=== PATIENT | female | born 1985 | race Hispanic/Latino ===

== ENCOUNTER 2018-07-01 00:54 | Observation (INO) | payer OTHER ==
[~2018-07-01] VITALS: Ht 165.1 cm; Wt 66.7 kg
[~2018-07-01 00:54] MED LIST: ORTHO TRI-CYCL1 EACH
--- OUTSIDE RECORDS SUMMARY | 2018-07-01 00:57 | XMS REPORT | Continuity of Care Document ---
Author Author [facility] Address Unknown Phone Unavailable Problems Problem Status Onset Date Classification Date Reported Comments Source Cough 12/03/2017 Diagnosis 12/03/2017 [facility] On examination - fluid -middle ear 12/03/2017 Diagnosis 12/03/2017 [facility] Acute maxillary sinusitis 12/03/2017 Diagnosis 12/03/2017 [facility] Medications Medication Details Route Status Patient Instructions Ordering Provider Order Date Source Amoxicillin 875 MG / Clavulanate 125 MG Oral Tablet [Augmentin] Augmentin 875 mg-125 mg tablet Take 1 tablet every 12 hours by oral route with meals for 10 days. Active [facility] Brompheniramine Maleate 0.4 MG/ML / Dextromethorphan Hydrobromide 2 MG/ML / Pseudoephedrine Hydrochloride 6 MG/ML Oral Solution [Bromfed DM] Bromfed DM 2 mg-30 mg-10 mg/5 mL syrup Take 10 mL every 4 hours by oral route as needed for 7 days. Active [facility] norgestimate-ethinyl estradiol 0.18 mg/0.215mg/0.25mg-35 mcg(28)tablet norgestimate-ethinyl estradiol 0.18 mg/0.215mg/0.25mg-35 mcg(28)tablet Active [facility] Allergies, Adverse Reactions, Alerts Substance Category Reaction Severity Reaction type Status Date Reported Comments Source Immunizations Immunization Date Given Site Status Last Updated Comments Source Results Order Name Results Value Reference Range Date Interpretation Comments Source Vital Signs Vital Sign Value Date Comments Source Diastolic (mm Hg) 68 12/03/2017 [facility] Height 65 12/03/2017 [facility] Systolic (mm Hg) 108 12/03/2017 [facility] Weight 142 12/03/2017 [facility] Encounters Location Location Details Encounter Type Encounter Number Reason For Visit Attending Provider ADM Date DC Date Status Source [place] - [facility] - [id number] Carrillo PA-C: [address] [place] [address], Ph. [id number] Kathy Carrillo 12/03/2017 [facility] Procedures Procedure Code Date Perfomer Comments Source 10/08/2007 [facility]
--- OUTSIDE RECORDS SUMMARY | 2018-07-01 00:57 | XMS REPORT | Encounter Summary ---
Author Organization Unknown Address [address] [place] [address] Phone [phone] Reason for Visit Medical Complaint Instructions 1. Acute maxillary sinusitis sinusitis: care instructions Augmentin 875 mg-125 mg tablet 2. On examination - fluid -middle ear 3. Cough cough: care instructions Bromfed DM 2 mg-30 mg-10 mg/5 mL syrup Discussion Note Take an hnfl-ukz-pyeaenh pain medicine, such as acetaminophen (Tylenol), ibuprofen (Advil, Motrin), or naproxen (Aleve). Read and follow all instructions on the label. If the doctor prescribed antibiotics, take them as directed. Do not stop taking them just because you feel better. You need to take the full course of antibiotics. Be careful when taking yqoq-knr-vodmkwe cold or flu medicines and Tylenol at the same time. Plan of Care Reminders Provider Appointments None recorded. Lab None recorded. Referral None recorded. Procedures None recorded. Surgeries None recorded. Imaging None recorded. Medications Name Start Date Augmentin 875 mg-125 mg tablet Take 1 tablet every 12 hours by oral route with meals for 10 days. Bromfed DM 2 mg-30 mg-10 mg/5 mL syrup Take 10 mL every 4 hours by oral route as needed for 7 days. norgestimate-ethinyl estradiol 0.18 mg/0.215mg/0.25mg-35 mcg(28)tablet Medications Administered None recorded. Vitals Height Weight BMI Blood Pressure 5 ft 5 in 142 lbs 23.6 kg/m2 108/68 mm[Hg] Lab Results None recorded. Allergies None recorded. Problems No Known Problems Procedures Date Name Performed by 10/08/2007 Information not available Vaccine List None recorded. Social History Smoking Status Never Smoker Past Encounters 12/03/2017 Acute Maxillary Sinusitis; On Examination - Fluid -Middle Ear; Cough Kathy Carrillo PA-C: [address] [facility], [place] [address], Ph. History of Present Illness Cough Reported By: Patient HPI: Location: chest, nasal/sinus. Quality: productive cough, sore throat, colored phlegm, congested. Duration: 7 days. Severity: mild. Onset/Timing: sudden. Context: no foreign travel, non-smoker, sick contact. Modifying factors: OTC medication. Associated Symptoms: no shortness of breath, no wheezing, no sweats, no significant weight gain, no significant weight loss, no morning cough, no vomiting, no diarrhea, no rash, no nausea, no fever/chills, no headache, green sputum, sore throat, muscle aches Review of Systems Basic Reported By: Patient Constitutional: Constitutional: no fever Eyes: Eyes: no eye complaints Jwjk-Cfya-Clzcu-Throat: Ears: ; bilateral ear pressure. Nose: nose/sinus problems. Mouth/Throat: no bleeding gums, no mouth complaints, no teeth problems, sore throat Cardiovascular: Cardiovascular: no chest pain, no shortness of breath, no known heart murmur Respiratory: Respiratory: no wheezing, no shortness of breath, cough Gastrointestinal: Gastrointestinal: no abdominal pain, no vomiting / diarrhea Genitourinary: Genitourinary: no urinary complaints, no discharge Musculoskeletal: Musculoskeletal: no muscle aches, no muscle weakness, no arthralgias/joint pain, no back pain Skin: Skin: no abnormal / changing mole, no jaundice, no rashes Neurologic: Neurologic: no loss of consciousness, no weakness, no numbness, no seizures, no dizziness, no headaches, headache Physical Exam Adult Basic Reported By: Patient Constitutional: General Appearance: healthy-appearing, well-nourished, well-developed. Level of Distress: NAD. Ambulation: ambulating normally Psychiatric: Mental Status: active and alert. Orientation: to time, to place, to person Eyes: Lids and Conjunctivae: non-injected, no discharge, no pallor. Pupils: PERRLA. EOM: EOMI. Sclerae: non-icteric. Vision: acuity grossly intact Sdf-Yqmc-Cbazl-Throat: Ears: no lesions on external ear, no outer ear tenderness, EACs clear, TMs clear, middle ear fluid. Hearing: no hearing loss. Nose: no lesions on external nose, nares patent, no septal deviation, nasal passages clear, sinus tenderness, post nasal drip. Lips, Teeth, and Gums: no mouth or lip ulcers, no bleeding gums, normal dentition. Oropharynx: moist mucous membranes, no erythema, no exudates, tonsils not enlarged Neck: Neck: supple, trachea midline, no masses, FROM. Lymph Nodes: no cervical LAD, no supraclavicular LAD, no axillary LAD, no inguinal LAD Lungs: Respiratory effort: no dyspnea, no tachypnea, no use of accessory muscles, no intercostal retractions. Auscultation: breath sounds normal Cardiovascular: Heart Auscultation: RRR, no murmurs
[2018-07-01] MEDS ORDERED: SODIUM CHLORIDE 0.9% 1000ML 1,000 ML IV ONE ×2 (01:15→02:30)
[2018-07-01 01:42] LABS: BASOPHILS % 0.5 % (0.0-1.0); EOSINOPHILS # (AUTO) 0.1 (0.0-0.4); EOSINOPHILS % 1.5 % (0.0-6.0); HEMATOCRIT 38.8 % (34.2-44.1); HEMOGLOBIN 12.6 g/dL (12.0-16.0); LYMPHOCYTES # (AUTO) 2.3 (1.0-3.2); LYMPHOCYTES % 37.2 % (18.0-39.1); MEAN CORPUSCULAR HEMOGLOBIN 29.4 pg (28-32); MEAN CORPUSCULAR HGB CONC 32.5 g/dL (31-35); MEAN CORPUSCULAR VOLUME 90.4 fL (81-99); MONOCYTES # (AUTO) 0.5 (0.2-0.8); NEUTROPHILS # (AUTO) 3.2 (2.1-6.9); NEUTROPHILS % 52.5 % (38.7-80.0); PLATELET COUNT 213 x10e3/uL (140-360); RED BLOOD COUNT 4.29 x10e6/uL (3.6-5.1); RED CELL DISTRIBUTION WIDTH 13.3 % (11.7-14.4)
[2018-07-01 01:45] LABS: CLARITY,URINE CLEAR (CLEAR); COLOR,URINE YELLOW (YELLOW); LEUKOCYTE ESTERASE ,URINE TRACE (NEGATIVE); NITRITE,URINE NEGATIVE (NEGATIVE); PROTEIN,URINE DIPSTICK NEGATIVE (NEGATIVE)
[2018-07-01 01:46] LABS: AMPHETAMINES SCREEN,URINE NEGATIVE (NEGATIVE); BENZODIAZEPINES SCREEN,URINE NEGATIVE (NEGATIVE); BILIRUBIN,URINE NEGATIVE (NEGATIVE); KETONES,URINE NEGATIVE (NEGATIVE); PHENCYCLIDINE SCREEN,URINE NEGATIVE (NEGATIVE); PREGNANCY TEST, URINE NEGATIVE (NEGATIVE); URINE UROBILINOGEN 0.2 mg/dL (0.2 - 1)
[2018-07-01 02:04] LABS: BACTERIA,URINE MANY /HPF; EPITHELIAL CELLS,URINE MANY /LPF; RBC,URINE 0-5 /HPF (0-5)
[2018-07-01 02:07] LABS: ALANINE AMINOTRANSFERASE 59 IU/L (0-55); ALBUMIN 3.6 g/dL (3.5-5.0); ALBUMIN/GLOBULIN RATIO 1.1 (0.8-2.0); ALKALINE PHOSPHATASE 51 IU/L (40-150); ANION GAP 12.8 mmol/L (8-16); BLOOD UREA NITROGEN 15 mg/dL (7-26); BUN/CREATININE RATIO 19 (6-25); CALCIUM 9.2 mg/dL (8.4-10.2); CARBON DIOXIDE 26 mmol/L (22-29); CHLORIDE 104 mmol/L (98-107); CREATININE, SERUM 0.81 mg/dL (0.57-1.11); EST GLOMERULAR FILTRATION RATE > 60 ML/MIN (60-); GLUCOSE 88 mg/dL (74-118); POTASSIUM 3.8 mmol/L (3.5-5.1); SODIUM 139 mmol/L (136-145)
[2018-07-01 02:39] LABS: CREATINE KINASE 17750 IU/L (29-168)
[2018-07-01] MEDS ORDERED: ONDANSETRON HCL INJ 2MG/ML 2ML 2 MG/ML VIAL IV PRN (02:45)
[2018-07-01] MEDS: SODIUM CHLORIDE 0.9% 1000ML 1,000 ML IV SCH ×4 (04:01→22:15)
--- NOTE | 2018-07-01 07:20 | NUR ---
walking rounds with mi jackson
--- NOTE | 2018-07-01 08:00 | NUR ---
pt reassessed denies any pain or complaints at this time resting comfortably in bed
[2018-07-01] MEDS ORDERED: LEVOFLOXACIN 500 MG TAB PO ONE (09:00)
[2018-07-01 10:36] LABS: CREATINE KINASE MB 4.3 ng/mL (0-5.0)
--- NOTE | 2018-07-01 16:54 | NUR ---
pt resting comfortably in bed watching tv with family denies any complaints at this time
--- NOTE | 2018-07-01 19:17 | NUR ---
RECEIVED BEDSIDE REPORT FROM MARISABEL CAO DAY SHIFT NURSE.
[2018-07-02] MEDS: SODIUM CHLORIDE 0.9% 1000ML 1,000 ML IV SCH ×3 (04:14→13:38)
[2018-07-02 06:09] LABS: BASOPHILS % 0.4 % (0.0-1.0); EOSINOPHILS # (AUTO) 0.1 (0.0-0.4); EOSINOPHILS % 2.4 % (0.0-6.0); HEMATOCRIT 34.7 % (34.2-44.1); HEMOGLOBIN 11.3 g/dL (12.0-16.0); LYMPHOCYTES # (AUTO) 1.9 (1.0-3.2); LYMPHOCYTES % 34.8 % (18.0-39.1); MEAN CORPUSCULAR HEMOGLOBIN 29.6 pg (28-32); MEAN CORPUSCULAR HGB CONC 32.6 g/dL (31-35); MEAN CORPUSCULAR VOLUME 90.8 fL (81-99); MONOCYTES # (AUTO) 0.4 (0.2-0.8); MONOCYTES % 7.6 % (4.4-11.3); NEUTROPHILS % 54.6 % (38.7-80.0); PLATELET COUNT 172 x10e3/uL (140-360); RED BLOOD COUNT 3.82 x10e6/uL (3.6-5.1); RED CELL DISTRIBUTION WIDTH 13.5 % (11.7-14.4)
[2018-07-02 06:12] LABS: ALANINE AMINOTRANSFERASE 45 IU/L (0-55); ALBUMIN 2.9 g/dL (3.5-5.0); ALBUMIN/GLOBULIN RATIO 1.2 (0.8-2.0); ALKALINE PHOSPHATASE 38 IU/L (40-150); ANION GAP 9.1 mmol/L (8-16); BLOOD UREA NITROGEN 7 mg/dL (7-26); BUN/CREATININE RATIO 10 (6-25); CARBON DIOXIDE 23 mmol/L (22-29); CHLORIDE 112 mmol/L (98-107); CREATININE, SERUM 0.71 mg/dL (0.57-1.11); EST GLOMERULAR FILTRATION RATE > 60 ML/MIN (60-); GLUCOSE 83 mg/dL (74-118); POTASSIUM 4.1 mmol/L (3.5-5.1); SODIUM 140 mmol/L (136-145)
--- NOTE | 2018-07-02 07:03 | NUR ---
REPORT GIVEN TO MARISABEL CAO DAY SHIFT NURSE.
[2018-07-02] MEDS: LEVOFLOXACIN 500 MG TAB PO SCH (07:29)
--- NOTE | 2018-07-02 07:58 | NUR ---
PT C/O LEFT HAND BEING SWOLLEN; HAND ASSESSED IS MORE SWOLLEN THAN RIGHT HAND PT DENIES PAIN PT HAS FULL ROM TO LEFT HAND
--- NOTE | 2018-07-02 08:01 | NUR ---
SPOKE WITH DR ADAMS PER DR ADAMS KEEP LEFT ARM ELEVATED
--- NOTE | 2018-07-02 10:19 | NUR ---
PT NOTIFIED OF D/C; PER PT SHE IS NOT COMFORTABLE BEING D/C WITH CK LEVEL 8603; PT CONTACTED HER PCP DR CAMARENA AND TOLD NURSE THAT DR CAMARENA DID NOT WANT HER TO LEAVE YET AND WOULD CONTACT DR. ADAMS CONCERNING D/C
--- NOTE | 2018-07-02 10:24 | NUR ---
PER DR ADAMS D/C PT IF DR WONG IS OK WITH IT BUT IF PT STILL WANTS TO STAY IT'S OK WITH HIM
--- NOTE | 2018-07-02 15:28 | History and Physical ---
PRIMARY CARE PHYSICIAN: Dr. Alexandra Rodríguez. PLANT WRAPPER: Dr. Maurisio Duarte. CHIEF COMPLAINT: Bilateral upper extremity swelling after weight lifting. This is her third admission to the hospital for the past few years due to rhabdomyolysis. HISTORY OF PRESENT ILLNESS: A 33-year-old female noticed that her bilateral upper extremity swelling after she was lifting weight. This is her third admission for the past few years, first admission was in 2016. The patient came in and workup pursued. Her CK level was 17,750. Her CK-MB was 7.1, but her troponin was negative. Total protein was 7, albumin 3.6, globulin 3.4. Electrolytes normal. Renal function tests normal. The patient was diagnosed with rhabdomyolysis, especially swelling of both upper extremities, her arms after weight lifting. The patient was placed on IV fluids. The patient is otherwise stable. PAST MEDICAL HISTORY: Recurrent rhabdomyolysis. PAST SURGICAL HISTORY: Noncontributory. SOCIAL HISTORY: The patient does not smoke or use alcohol. No recreational drug use. She exercises regularly. ALLERGIES: SULFA. HOME MEDICATIONS: None. PHYSICAL EXAMINATION: VITAL SIGNS: Temperature is 98, blood pressure 103/68, pulse rate is 85, respirations 18. GENERAL: The patient is not in acute distress. She is awake. HEENT: Normocephalic, atraumatic. Anicteric. NECK: Supple grossly. PULMONARY: Diminished breath sounds. CARDIOVASCULAR: Regular rate and rhythm. ABDOMEN: Soft, nontender, nondistended. EXTREMITIES: Bilateral upper extremity swelling but no pitting edema. No cyanosis. No vascular compromise. NEUROLOGIC: No focal deficit. LABORATORY DATA: Sodium was 139, potassium 3.8, chloride 104, bicarb 26, BUN 15, creatinine 0.8 glucose 19. CK level is 17,750. AST was 251, ALT 59, alkaline phos is 51, total protein 7. Albumin is 3.6, globulin is 3.4. WBC 6.1, hemoglobin 12.6, hematocrit 38.8, platelets 213. Urinalysis, many bacteria, trace leukocyte esterase. Rheumatoid factor and MATHIEU screen still pending. IMPRESSION: 1. Acute rhabdomyolysis secondary to muscle breakdown from weight lifting most likely. This is her 3rd admission for the past 3 to 4 years due to the rhabdomyolysis. 2. Mild urinary tract infection. 3. Bilateral upper extremity swelling and pain. PLAN: Continue with IV fluid rehydration. Consultation with Dr. Maurisio Duarte. MATHIEU, rheumatoid factor. Repeat CK level. Check lab. Check renal function. MD VIDHI Trevizo/MODL /[id number] cc: Alexandra Rodríguez MD
--- NOTE | 2018-07-02 15:39 | NUR ---
pt resting comfortably in bed with family in room makes no complaints at this time
[2018-07-02 18:44] VITALS: BP 110/72
--- NOTE | 2018-07-02 18:46 | NUR ---
PATIENT ARRIVED ON THE UNIT AT 1828- PATIENT IS ALERT AND IN STABLE CONDITION WITH NO S/S OF RESPIRATORY DISTRESS. PATIENT DENIES ANY PAIN AT THIS TIME. IV FLUIDS CURRENTLY INFUSING. FAMILY MEMBERS PRESENT IN ROOM. CALL LIGHT IS WITHIN REACH OF PATIENT, PATIENT INSTRUCTED TO CALL FOR ASSISTANCE NEEDED.
--- NOTE | 2018-07-02 19:34 | NUR ---
PATIENT IS IN STABLE CONDITION WITH NO S/S OF RESPIRATORY DISTRESS. NO PAIN VOICED. IV FLUIDS INFUSING. FAMILY MEMBERS PRESENT IN ROOM. CALL LIGHT IS WITHIN REACH OF PATIENT, PATIENT INSTRUCTED TO CALL FOR ASSISTANCE NEEDED. BEDSIDE REPORT GIVEN TO ONCOMING NURSE.
[2018-07-02 20:00] VITALS: BP 109/67
--- NOTE | 2018-07-02 20:08 | NUR ---
RECEIVED PT IN BED AOX3 .RESPIRATIONS ARE EVEN AND UNLABORED .SKIN WARM AND DRY TO TOUCH .FAMILY AT THE BEDSIDE .ASSESSMENT DONE .CALL LIGHT WITH IN REACH .CONTINUE TO MONITOR
[2018-07-02 20:52] VITALS: BP 110/72
[2018-07-03] VITALS: BP 110/61
[2018-07-03 00:39] VITALS: BP 110/72
[2018-07-03] MEDS: SODIUM CHLORIDE 0.9% 1000ML 1,000 ML IV SCH (02:58)
--- NOTE | 2018-07-03 03:16 | Consultation ---
DATE OF CONSULTATION: 07/02/2018 Renal Consultation. REASON FOR CONSULTATION: Rhabdomyolysis. HISTORY OF PRESENT ILLNESS: A 14-mky[age]-vgm-female with a history of two prior episodes of rhabdomyolysis, one in 2015 and one in 2017, presented to [facility] with bilateral upper extremity weakness and swelling typical of rhabdomyolysis. When the patient had her first episode it was attributed to protein supplementation and her second episode was attributed with dietary supplement. The patient states she has been taking no dietary or any other supplements and had a workout on her upper extremities that was very typical of previous workout. She was not in a very hot environment and was well hydrated. The patient presented to [facility] [place] [address], was started on IV fluids and Nephrology consultation was called. REVIEW OF SYSTEMS: As above. All other systems negative. PAST MEDICAL HISTORY: Rhabdomyolysis x2, once in 2015 and once in 2016. PAST SURGICAL HISTORY: None. SOCIAL HISTORY: No tobacco. No alcohol. No IV drugs. Works as a teacher and health coach. ALLERGIES: SULFA. CURRENT MEDICATIONS: See list. PHYSICAL EXAMINATION: VITAL SIGNS: Blood pressure 110/72, pulse 82, respiratory rate 18, temperature 97.2. GENERAL: No apparent distress. HEENT: Oropharynx is clear. No scleral icterus. No peripheral edema. NECK: Supple. No elevation in jugular venous pressure. No lymphadenopathy. CHEST: Clear to auscultation anteriorly bilaterally. CARDIOVASCULAR: Regular rhythm. No murmurs or rubs. ABDOMEN: Soft. Positive bowel sounds. No tenderness. No rebound. EXTREMITIES: No edema. No clubbing. No cyanosis. SKIN: Warm. LABORATORY DATA: Sodium 140, potassium 4.1, chloride 112, CO2 of 23, BUN 7, creatinine 0.71. AST 144. CK 8603 down [place] [address]. ASSESSMENT AND PLAN: 1. Rhabdomyolysis. Continue with IV fluids. If the patient's CK is less than 5000, she can be safely discharged home. Explained this to the patient. The patient should follow up with Rheumatology for possible underlying diagnosis that is contributing to this recurrent episodes of rhabdomyolysis. 2. Euvolemic on exam. Continue IV fluids as above. 3. Lytes, acceptable. Maurisio Merszei, MD JM/ELI /[id number]
[2018-07-03 04:00] VITALS: BP 103/58
--- NOTE | 2018-07-03 05:16 | Discharge Summary ---
PRIMARY CARE PHYSICIAN: Dr. Alexandra Rodríguez POLICY CANCELLATION CLERK: Dr. Maurisio Duarte. FINAL DIAGNOSES: 1. Rhabdomyolysis secondary to weight lifting and strenuous exercise. 2. Bilateral upper extremity swelling, improving. 3. Bilateral upper extremity arm and hand pain, resolving. 4. Mild urinary tract infection. SUMMARY: This is a 33-year-old female with rhabdomyolysis. This is her 3rd admission for the past 3-4 years. She usually has heavy exercise and weightlifting and that is when she gets into rhabdomyolysis. The CK level was greater than 17,000. The patient is otherwise stable. The CK level today after IV fluid rehydration was significantly improved with the CK of 8,603. The patient is stable. Renal function is unremarkable. The patient's rheumatoid factor and MATHIEU still pending. She did receive Levaquin for urinary tract infection. The patient is stable. She has tolerated IV fluid rehydration. No sign of renal failure. The patient is stable. Liver enzyme is trending down AST from 251 to 144, ALT 59 to 45, alkaline phosphatase 51 to 38. The patient is stable after IV fluid batch. The patient may be discharged home after seeing Dr. Duarte. I recommend the patient to follow up with Dr. Rodríguez for referral to conference planning manager for muscle workup. The patient is otherwise stable. MD VIDHI Trevizo/IVANL /[id number]
--- NOTE | 2018-07-03 06:04 | NUR ---
PT RESTED DURING THE NIGHT AND DENIES PAIN.FAMILY AT THE BEDSIDE .CALL LIGHT WITH IN REACH
[2018-07-03 06:42] LABS: ANION GAP 9.9 mmol/L (8-16); BLOOD UREA NITROGEN 11 mg/dL (7-26); BUN/CREATININE RATIO 15 (6-25); CALCIUM 8.4 mg/dL (8.4-10.2); CARBON DIOXIDE 25 mmol/L (22-29); CHLORIDE 109 mmol/L (98-107); CREATININE, SERUM 0.73 mg/dL (0.57-1.11); EST GLOMERULAR FILTRATION RATE > 60 ML/MIN (60-); GLUCOSE 90 mg/dL (74-118); POTASSIUM 3.9 mmol/L (3.5-5.1); SODIUM 140 mmol/L (136-145)
[2018-07-03] MEDS: LEVOFLOXACIN 500 MG TAB PO SCH (07:00)
--- NOTE | 2018-07-03 07:10 | NUR ---
REPORT GIVEN TO THE ON COMING NURSE
--- NOTE | 2018-07-03 07:20 | NUR ---
PATIENT IS IN STABLE CONDITION WITH NO S/S OF RESPIRATORY DISTRESS. PATIENT DENIES ANY PAIN. IV FLUIDS INFUSING. FAMILY MEMBER PRESENT IN ROOM. CALL LIGHT IS WITHIN REACH OF PATIENT; PATIENT INSTRUCTED TO CALL FOR ASSISTANCE NEEDED.
[2018-07-03 08:00] VITALS: BP 97/52
[2018-07-03 08:16] VITALS: BP 97/52
[2018-07-03 08:49] VITALS: BP 105/58
--- NOTE | 2018-07-03 11:38 | NUR ---
PATIENT DISCHARGE HOME- PATIENT OFF THE UNIT AT 1129 PER AMBULATION ACCOMPANIED BY RN TO THE FRONT LOBBY. PATIENT IS IN STABLE CONDITION WITH NO S/S OF RESPIRATORY DISTRESS- NO PAIN VOICED. IV REMOVED WITH TIP INTACT. DISCHARGE TEACHING AND INSTRUCTIONS GIVEN TO THE PATIENT. ALL PERSONAL ITEMS TAKEN WITH THE PATIENT.
--- NOTE | 2018-07-04 05:50 | Discharge Summary ---
ADDENDUM: PRIMARY CARE PHYSICIAN: Dr. Alexandra Rodríguez The patient was discharged home today. Rheumatoid factor is negative. MATHIEU is still pending. The patient's CK today is 4941 from 8603. The patient is stable. Electrolyte is otherwise unremarkable. MATHIEU screening still pending. Rheumatoid factor is less than 10. The patient is stable, discharged home today. Follow up with Dr. Rodríguez and will need oil burner installer consultation as an outpatient. MD VIDHI Trevizo/ELI /[id number]
== END 2018-07-03 11:49 | disposition home or self-care (01) ==
LOC: ER 00:54 → ERHOLD 03:02 → MED/SURG3 07-02 18:28
PROVIDERS: ADMIT Internal Medicine; ATTEND Internal Medicine
DX: M62.82 Rhabdomyolysis (principal); N39.0 Urinary tract infection, site not specified; M79.89 Other specified soft tissue disorders; Y93.B1 Activity, exercise machines primarily for muscle strengthening; Z82.49 Family history of ischemic heart disease and other diseases of the circulatory system; Z88.2 Allergy status to sulfonamides
CPT/HCPCS: 36415 ×3; 80048; 80053 ×2; 80307; 81001; 81025; 82550 ×3; 82553; 84484; 85025 ×2; 85651; 86039; 86431; 99284; G0378 ×3; J7030 ×2